=== PATIENT | male | born 1990 | race Caucasian/White ===

== ENCOUNTER 2022-09-12 05:35 | Emergency (ER) | payer OTHER ==
[~2022-09-12] VITALS: Ht 175.3 cm; Wt 72.6 kg
== END 2022-09-12 08:31 | disposition home or self-care (01) ==
LOC: ER 05:35
DX: S93.401A Sprain of unspecified ligament of right ankle, initial encounter (principal); V03.00XA Pedestrian on foot injured in collision with car, pick-up truck or van in nontraffic accident, initial encounter; Y93.9 Activity, unspecified; Y92.9 Unspecified place or not applicable; Y99.9 Unspecified external cause status